=== PATIENT | male | born 1965 | race Caucasian/White ===

== ENCOUNTER → 2020-10-10 13:02 | Outpatient (CLI) | payer OTHER, SELFPAY ==
[2018-08-18 08:06] VITALS: BMI 29.9
--- NOTE | 2020-10-10 14:31 | NEURO ---
NCS and/or EMG Patient Report Ordering Doctor: Franklyn Snow DATE OF SERVICE: 10/10/20 Jam Mukherjee presents for electrodiagnostic testing of the upper limbs. Reports weakness in both hands and pain around the right elbow. Electrodiagnostic findings: Median motor nerve demonstrates normal distal latency, amplitude and conduction velocity bilaterally. There is an approximately 15% drop in ulnar motor conduction across the right elbow. Left ulnar motor responses within normal limits. Prolonged right ulnar F wave. Prolonged left ulnar F wave. Sensory responses are within normal limits. On needle EMG, all muscles tested in the upper limb showed no evidence of denervation with normal motor unit action potentials. Electrodiagnostic impression: This is an abnormal study. 1. Electrodiagnostic findings demonstrate a mild left cubital tunnel syndrome, characterized by 15% drop in ulnar nerve conduction across the elbow. 2. No electrodiagnostic evidence is noted for median neuropathy, i.e. carpal tunnel syndrome. 3. No electrodiagnostic evidence is noted for cervical radiculopathy.
== END ==
PROVIDERS: PCP Family Medicine; Referring Provider Specialist; Visit Provider Specialist
DX: M77.11 Lateral epicondylitis, right elbow (principal); G56.03 Carpal tunnel syndrome, bilateral upper limbs
CPT/HCPCS: 95886; 95913

== ENCOUNTER 2021-01-26 18:52 | Emergency (ER) | payer OTHER, SELFPAY ==
[2018-08-18 08:06] VITALS: BMI 29.9
[2021-01-26 18:53] VITALS: BP 126/75; PULSE 86; RESP 16; TEMP 36.4; O2SAT 98; BMI 30.3
--- NOTE | 2021-01-26 19:52 | EX.ED.VIS.EY ---
HPI History of Present Illness Chief Complaint: Eye Problem Narrative Narrative: 55-year-old male presenting with right eye irritation for 4 hours. He denies any direct trauma to the eye. He states that he feels like he has foreign body sensation. He is a noncontact wearer. Patient states he has been rubbing his eye since that time. Denies any visual complaints. [facility] Medical History history of heel spur Home Medications acetaminophen 500 - 1,000 mg PO DAILY 09/19/16 [History Last Taken Unknown] ibuprofen 600 mg PO 4X/DAY PRN 09/19/16 [History Last Taken Unknown] naproxen sodium [Aleve] 220 mg PO TID 09/19/16 [History Last Taken Unknown] erythromycin 1 applic RIGHT EYE Q8H 5 Days #3.5 g 01/26/21 [Rx Last Taken Unknown] Allergy/AdvReac Type Severity Reaction Status Date / Time No Known Allergies Allergy Verified 01/26/21 18:52 Social History Smoking Status: Current every day smoker tobacco type: pipe alcohol intake: never ROS ROS ED Constitutional Constitutional ED: Denies chills or fever(s) Eyes Eyes: Reports other Details: Right eye irritation with foreign body sensation ; Denies blurry vision or diplopia ENT ENT ED: Denies rhinorrhea or sore throat Cardiovascular Cardiovascular: Denies chest pain or palpitations Respiratory/Chest Respiratory/Chest: Denies cough or dyspnea Gastrointestinal Gastrointestinal: Denies abdominal pain, nausea or vomiting Genitourinary Genitourinary ED: Denies dysuria or hematuria Musculoskeletal Musculoskeletal: Denies arthralgias, back pain, myalgias or neck pain Integumentary Denies abscess or rash Neurologic Neurologic: Denies headache(s) or paresthesias EXAM Physical Exam Const Vital Signs: 01/26/21 18:53 Temperature 97.6 F L Temperature Source Temporal Pulse Rate 86 Respiratory Rate 16 Blood Pressure 126/75 H Blood Pressure Mean 92 Pulse Ox 98 Oxygen Delivery Method Room Air Positive well nourished General Appearance ED: NAD HEENT atraumatic Eyes Periorbital: periorbital findings normal Eyelid: eyelids normal Conjunctiva: conjunctiva abnormal right Cornea: cornea abnormal Positive for right and fluorescein used Pupil: PERRL and accommodation reflex normal EOM: EOM abnormal Resp normal respiratory effort and clear to auscultation bilaterally Cardio regular rate and regular rhythm Neuro oriented x3 Sensorium / Orientation: alert Skin Lesions: no lesions Rashes: no rashes MDM MDM MDM Narrative Medical decision making narrative: Patient presenting with right eye irritation. Using fluorescein I ambulate visualize corneal abrasion and scleral injection in the right eye. The abrasion appears to be punctate at the 7 o'clock position. Scleral irritation is noted adjacent to this. There are no foreign bodies. Lids and lashes are normal. No drainage from the right eye. Patient will be started on erythromycin ophthalmic in the ED. He is given instructions for this use at home. Patient also given follow-up with ophthalmology. Patient stable for discharge. Impression: 1. Right eye corneal abrasion Discharge Plan Triage Chief Complaint: Eye Problem ED Provider: Abraham Patel Dx/Rx/DC Orders Instructions: ED Corneal Abrasion Prescriptions: New erythromycin 5 mg/gram (0.5 %) ointment 1 applic RIGHT EYE Q8H 5 Days Qty: 3.5 RF: 0 No Action acetaminophen 500 MG tablet 500 - 1,000 mg PO DAILY RF: 0 naproxen sodium [Aleve] 220 MG tablet 220 mg PO TID RF: 0 ibuprofen 600 MG tablet 600 mg PO 4X/DAY PRN (Reason: Pain) RF: 0 Primary Care Provider: Johnny Black Referrals: Johnny Black MD [Primary Care Provider] - Verna Arriaga MD [STAFF PHYSICIAN] - As soon as possible Disposition Disposition: Home, Self Care Discharge Date/Time: 01/26/21 20:14
[2021-01-26] MEDS: Erythromycin Base 1 OPTH.TUBE 1 APPLIC RIGHT EYE (20:10)
[2021-01-26] MEDS: Fluorescein 1 MG STRIP 1 STRIP LEFT EYE (20:10)
[2021-01-26] MEDS: Tetracaine 0.5% Ophthalmic Bottle 1 DRP LEFT EYE (20:10)
== END 2021-01-26 20:14 | disposition home or self-care (01) ==
PROVIDERS: Emergency Provider Student in an Organized Health Care Education/Training Program; PCP Family Medicine
DX: S05.01XA Injury of conjunctiva and corneal abrasion without foreign body, right eye, initial encounter (principal); X58.XXXA Exposure to other specified factors, initial encounter; Y93.9 Activity, unspecified; Y92.9 Unspecified place or not applicable; Y99.9 Unspecified external cause status; F17.290 Nicotine dependence, other tobacco product, uncomplicated
CPT/HCPCS: 99282

== ENCOUNTER → 2023-07-30 | Outpatient (CLI) | payer OTHER, SELFPAY ==
[2023-07-30 13:31] LABS: Absolute Lymphocyte Count 2.33 X10^3/uL (0.83-4.51); Absolute Neutrophil Count 3.3 X10^3/uL (2.0-7.7); Basophil% 1.5 % (0-1); Eosinophil# 0.39 X10^3/uL; Eosinophils% 5.7 % (0-5); Hematocrit 42.8 % (40-54); Hemoglobin 14.6 g/dL (13.0-16.5); Lymphocyte # 2.33 X10^3/ul (0.83-4.51); Lymphocyte % 34.3 % (19-41); Mean Corp Hgb Conc 34.1 g/dL (32-36); Mean Corpuscular Hgb 31.1 pg (27.0-32.0); Mean Corpuscular Volume 91.3 fL (80-94); Mean Platelet Vol. 8.8 fl (6.2-12.0); Monocyte# 0.62 X10^3/uL; Monocyte% 9.1 % (0-10); NRBC Flagged by Analyzer 0 % (0-5); Neutrophil # 3.33 X10^3/uL (2.7-7.7); Neutrophil % 49.1 % (47-70); Platelet Count 351 K/mm3 (150-450); RBC Distribution Width CV 12.6 % (11.6-14.6); RBC Distribution Width SD 41.6 fl (35.1-43.9); Red Blood Count 4.69 M/mm3 (4.6-6.2); White Blood Count 6.8 K/mm3 (4.4-11.0)
[2023-07-30 14:35] LABS: Albumin, Serum 3.9 g/dL (3.2-5.0); Anion Gap 4 (5-15); BUN 17 mg/dL (7-18); BUN/Creat Ratio 16.8 RATIO (10-20); Calcium,Total 9.2 mg/dL (8.5-10.1); Chloride 106 mmol/L (98-107); Creatinine, Serum 1.01 mg/dL (0.70-1.30); EST Glomerular Filtration Rate 80 mL/min (>60); Est Glom Filt Rate - Afr Amer 97 mL/min (>60); Glucose 107 mg/dL (74-106); Potassium 4.5 mmol/L (3.5-5.1); Sodium Level 138 mmol/L (136-145)
--- OUTSIDE RECORDS SUMMARY | 2023-07-30 15:01 | XMS RPT_ITS | CCD ---
Author Name Unknown Address [address] [place] [address] Organization [facility] Care Team Providers Care Office Systems Technology Instructor Name Role Phone Wayne MAURO, Johnyn Stevens Primary Care Provider WILDA MAURO, DR CAIO Bolton Attending [facility] PHYSICIAN, NONE Primary Care Unavailable Problems Problem Classification Problem Date Documented Da te Episodic/Chronic Substance-related disorders (1 source) Smoker; Translations: [Nicotine dependence, unspecified, uncomplicated] Onset: 04-09-2009 04-09-2009 Chronic Encounters Encounter Date Encounter Type Care Provider Facility Start: 05-26-[address] CAIO ASTUDILLO MD F acility:B Start: 10-16-2020 End: 10-16-2020 Patient encounter procedure External Provider EXTERNAL-NON [facility] Start: 10-16-2020 Results Only External Provider Exter nal-Non[facility] Procedures Date Procedure Procedure Detail Performing Clinician Start: 10-16-2020 EXTERNAL PROCEDURE Exte rnal Provider Plan of Treatment Date Care Activity Detail Author Start: 02-20-2021 Influenza vaccination INFLUENZA (Sea son Ended) [facility] Start: 09-13-2019 PROSTATE CANCER SCRE ENING DISCUSSION PROSTATE CANCER SCREENING DISCUSSION [facility] Start: 2014 Screening for malign ant neoplasm of colon [facility] Start: 2014 SHINGRIX VACCINE (1 of 2) [place] GRIX VACCINE (1 of 2) [facility] Start: 2009 DIABETES SCREEN DIABETES SCREEN [facility] Start: 09-13-1999 LIPID SCREEN LIPID SCREEN [facility] Start: 09-13-1983 ONE PNEUMOVAX PRIOR TO AGE 65 ONE PNEUMOVAX PRIOR TO AGE 65 [facility] Start: 09-13-1983 Urine microalbumin profile DTAP,TDAP ,TD (1 - Tdap) [facility] Start: 1982 HEPATITIS C SCREENING HEPATITIS C SC REENING [facility] Start: 1982 [facility] Start: 1976 Adult depression scr eening assessment DEPRESSION SCREENING [facility] Payers Date Payer Category Payer Unknown [employer] PPO [id number] 2016-Present PPO [id number] Social History Date Type Detail Facility Start: 09-29-2016 Tobacco smoking stat us MDIS Current every day smoker [facility] History of tobacco use Cigarette Smoker [facility] Start: 09-29-2016 Cigarettes smoked cu rrent (pack per day) - Reported [facility] Start: 09-29-2016 Alcohol intake Current drinke r of alcohol (finding) [facility] Start: 1965 Sex Assigned At Not on file [facility] Summary Purpose Family History No Family History Records Found Advance Directives No Advanced Directives Records Found Additional Source Comments Source Comments (unrecognize d section and content) In the event this informatio n is protected by the Federal Confidentiality of Alcohol and Drug Abuse Patient Records regulations: The Federal rules restrict any use of the information to criminally investigate or prosecute any alcohol or drug abuse patient.[facility] (unrecognized sect ion and content) No Status Records Found INFORMATION SOURCE (unrecogn ized section and content) FOR RECORDS PERTAINING TO PATIENTS WHO ARE OR HAVE BEEN ENROLLED IN A CHEMICAL DEPENDENCY/SUBSTANCEABUSE PROGRAM, SOME INFORMATION MAY BE OMITTED. This clinical summary was aggregated from multiple sources. Caution should be exercised in using it in the provision of clinical care. This summary normalizes information from multiple sources, and as a consequence, information in this document may materially change the coding, format and clinical context of patient data. In addition, data may be omitted in some cases. CLINICAL DECISIONS SHOULD BE BASED ON THE PRIMARY CLINICAL RECORDS. [facility]. provides no warranty or guarantee of the accuracy or completeness of information in this document.
== END | disposition home or self-care (01) ==
PROVIDERS: PCP Family Medicine; Referring Provider Specialist; Visit Provider Specialist
DX: Z01.818 Encounter for other preprocedural examination (principal); E11.9 Type 2 diabetes mellitus without complications; M17.11 Unilateral primary osteoarthritis, right knee; Z01.810 Encounter for preprocedural cardiovascular examination
CPT/HCPCS: 36415; 80048; 82040; 85025; 93005

== ENCOUNTER → 2023-09-04 | Outpatient (CLI) | payer OTHER, SELFPAY ==
--- NOTE | 2023-09-04 12:45 | VDLE_ITS ---
Reason For Study: RLE EDEMA, S/P RT TKR RIGHT LEFT GSV is normal. CFV is compressible, spontaneous, phasic, CFV is compressible, spontaneous, phasic, competent, and demonstrates normal competent and demonstrates normal augmentation. augmentation. FV is compressible, spontaneous, phasic, competent and demonstrates normal augmentation. POP V is compressible, spontaneous, phasic, competent and demonstrates normal augmentation. T/P Trunk is compressible. PTV is compressible. RT PerV is compressible. Procedure This is a venous duplex using B-mode, color flow and spectral Doppler. Exam performed in department. A preliminary report was called and/or faxed to Haile Troy PA-C @ [phone] @ 1:10 pm. VL/Venous Duplex US, Unilateral Interpretation Summary Deep veins of the right lower extremity are patent and compressible segmentally . There is no evidence of right lower extremity deep vein thrombosis. Valvular competence janell ears intact within the proximal deep venous system on the right . The right great saphenous vein a ppears patent and compressible segmentally. The left common femoral vein is patent and compressib le . Ordering Physician: Haile Troy Referring Physician: Johnny Black Performed By: Armida Hatfield, ARUN, RVT
--- OUTSIDE RECORDS SUMMARY | 2023-09-04 17:38 | XMS RPT_ITS | CCD ---
Author Name Unknown Address Formerly [id number] [place] [address] Organization [facility] Care Team Providers Care Office Manager Receptionist Name Role Phone Wayne MAURO, Kesha Stevens Primary Care Provider [phone] WILDA MAURO, DR CAIO Bolton Attending Xiang grimaldo PHYSICIAN, NONE Primary Care Unavailable PHYSICIAN, NONE Primary Care Physician Kesha Jeffrey MD Primary Care Provider [phone] KESHA CARLISLE MARK Primary Care Unavailable Allergies Allergy Classification Reported Allergen(s) Allergy Type Date of Onset Reaction(s) Facility (1 source) Bee Sting Allergy to substance 08-03-2023 [facility] Medications Completed/Discontinued Medications Medication Drug Class(es) Dates Sig (Normalized) Sig (Original) meloxicam 7.5 mg oral tablet (1 source) Nonsteroidal Anti-inflammatory Drug Start: 08-03-2023 take 1 tablet by mouth twice daily at mealtime meloxicam (MOBIC) 7.5 mg tablet Take 1 tablet by mouth two times a day. With food. 0 08/03/2023 Active Problems Problem Classification Problem Date Documented Da te Episodic/Chronic Substance-related disorders (3 sources) Smoker; Translations: [Nicotine dependence, unspecified, uncomplicated] Onset: 04-09-2009 04-09-2009 Chronic Results Test Name Value Interpretation Reference Range Facil ity Vital Signs Date Time Vital Sign Value Performing Clinician Faci lity 08-03-2023 14:18-0500 Body height 185.4 cm Kesha Carlisle MD Work Phone: [facility] 08-03-2023 14:18-0500 Body weight 107.46 kg Kesha Carlisle MD Work Phone: [facility] 08-03-2023 14:18-0500 Diastolic blood pressure 80 mm[Hg] Kesha Carlisle MD Work Phone: [facility] 08-03-2023 14:18-0500 Heart rate 78 /min Kesha Carlisle MD Work Phone: [facility] 08-03-2023 14:18-0500 Respiratory rate 16 /min Kesha Carlisle MD Work Phone: [facility] 08-03-2023 14:18-0500 Systolic blood pressure 120 mm[Hg] Kesha Carlisle MD Work Phone: [facility] Encounters Encounter Date Encounter Type Care Provider Facility Start: 08-03-2023 End: 08-03-2023 ambulatory KESHA CARLISLE Facility:[facility] Start: 08-03-2023 End: 08-03-2023 Patient encounter procedure Kesha Carlisle MD Work Phone: [facility] Procedures Date Procedure Procedure Detail Performing Clinician Start: 10-16-2020 EXTERNAL PROCEDURE Exte rnal Provider Plan of Treatment Date Care Activity Detail Author Start: 08-03-2024 Covid-19 Vaccine ( season) Covid-19 Vaccine ( season) [facility] Immunizations Immunization Date Immunization Notes Care Provider Mj moura 09-01-2016 influenza virus vaccine, unspecified formulation Kesha Carlisle MD Work Phone: [facility] Payers Date Payer Category Payer Unknown MMO [employer] PPO [id number] 2022-Present [phone] [address] [place] [address] PPO [id number] 2016 Unknown [employer] PPO [id number] 2016-Present PPO [id number] 2016 Unknown [id number] Social History Date Type Detail Facility Start: 09-29-2016 End: 08-03-2023 Tobacco smoking status NHIS Current every day smoker [facility] History of tobacco use Cigarette Smoker [facility] Start: 09-29-2016 End: 08-03-2023 Cigarettes smoked current (pack per day) - Reported [facility] Work Phone: Start: 09-29-2016 End: 08-03-2023 Alcohol intake Current drinker of alcohol (finding) [facility] Start: 1965 Sex Assigned At Not on file [facility] Start: 08-03-2023 Tobacco use panel [facility] Work Phone: Adult Depression Screening Assessment 0 [facility] Work Phone: Progress note 08-03-2023 Note Date & Type Note Facility 08-03-2023 Note HNO ID: [id number] Author: KESHA CARLISLE MD Service: ? Author Type: Physician Type: Progress Notes Filed: 08/03/2023 14:41 Note Text: Chief Complaint Patient presents with: Pre-Op Exam: HPI Thee Mukherjee is a 57 year old male who presents here today for a pre-op appt. Pt here today for a pre-op appt. Has not been seen since 2007. He is scheduled to have Right TKR done 08/21/[address] Snow with [facility]. He has had his PAT done already. All pre admission testing was normal as far as he is aware, no one has called him to tell him other connors. Smokes 1.5 ppd, not interested in quitting. He is trying to cut back to half ppd. Denies drinking much alcohol. Does not take any regular medications other than what the Ortho provider put him on: Tylenol 1,000 mg twice daily and Mobic 7.5 mg 1 pill twice daily. Denies any problems in the past with surgeries or anesthesia. No chest pains, dizziness, or SOB. He is not limited in activity by his breathing. Still working nurse anesthetist, has a very busy active job. Denies ever injuring the right knee before. He has been getting cortisone injections regularly for the last 2 years but those are not working well to control the arthritis pain. Left knee is not as bad as the right knee. Declined all vaccines, colon cancer screening, HIV and Hep C screening. HM: Depression screening; denies feeling depressed or hopeless. Depression screening tool completed and reviewed. Based on score and interview, patient is not at risk for depression. Screening tool discussed with patient, and I recommended no further intervention at this time Past medical history, appointments, medications, allergies reviewed. Previous Medical History No past medical history on file. Previous Surgical History PAST SURGICAL HISTORY Procedure Laterality Date PAST SURGICAL HISTORY OF Right 09/26/2016 plantar fasciitis and infracalcaneal spur Family History FAMILY HISTORY Problem Relation Age of Onset Cancer Father Liver, lung Patient Allergies ALLERGIES Allergen Reactions Bee Sting Swelling Current Medications No current outpatient medications on file prior to visit. No current facility-administered medications on file prior to visit. Social History Social History Tobacco Use Smoking status: Every Day Packs/day: 2.00 Years: 20.00 Additional pack years: 0.00 Total pack years: 40.00 Types: Cigarettes Substance Use Topics Alcohol use: Yes Drug use: No EXAM: BP 120/80 Pulse 78 Resp 16 Ht 185.4 cm (6' 1 ) Wt 107.5 kg (236 lb 14.4 oz) BMI 31.26 kg/m? General Appearance: Well appearing, alert, in no acute distress, well-hydrated, well nourished. and Overweight. Neck: Supple, no adenopathy; thyroid symmetric, normal size. Lungs: Lungs clear to auscultation. No wheezing, rhonchi, rales.. Heart: RRR without murmur, gallop, or rubs. No ectopy. Abdomen: Normal abdominal exam, Abdomen soft, non-tender. Bowel sounds normal. No masses, organomegaly. Health Maintenance List Hepatitis B Vaccine(1 of 3 - 3-dose series) Never done Covid-19 Vaccine(1) Never done Hepatitis C Screening Never done HIV Screening Never done DTaP,Tdap,Td Vaccine(1 - Tdap) Never done Lipid Screening Never done Diabetes Screening Never done Colorectal Cancer Screening Never done Shingrix Vaccine(1 of 2) Never done Prostate Cancer Screening Discussion Never done Influenza Vaccine(1) due on 02/20/2023 Depression Assessment Never done Data reviewed BMP/CBC on 07/30/23 normal ASSESSMENT/PLAN: 1. Pre-op exam - ICD9: V72.84, ICD10: Z01.818 Cleared for knee surgery Encouraged smoking cessation Copy of today's visit faxed to [facility] Follow up as needed. I agree with the Chief Complaint, ROS, and Past Histories independently gathered by the clinical direct support staff and the remaining scribed note accurately describes my personal service to the patient. I spent a total of 30 minutes on the date of the service which included preparing to see the patient, [id number] patient care, completing clinical documentation, obtaining and/or reviewing separately obtained history, performing a medically appropriate examination, counseling and educating the patient/family/caregiver, and independently interpreting results (not separately reported). Kesha Carlisle MD The documentation for this note was completed by Mary Goncalves Ma acting as scribe for Kesha Carlisle MD. August 03, 2023 2:28 PM. Mary Goncalves Ma [facility] History of Present illness Narrative 08-03-2023 Kesha Carlisle MD - 08/03/2023 2:40 PM EST Note Date & Type Note Facility 08-03-2023 History of Presen t illness Narrative Chief Complaint Patient presents with: Pre-Op Exam: HPI Thee Mukherjee is a 57 year old male who presents here today for a pre-op appt. Pt here today for a pre-op appt. Has not been seen since 2007. He is scheduled to have Right TKR done 08/21/[address] Snow with [facility]. He has had his PAT done already. All pre admission testing was normal as far as he is aware, no one has called him to tell him other connors. Smokes 1.5 ppd, not interested in quitting. He is trying to cut back to half ppd. Denies drinking much alcohol. Does not take any regular medications other than what the Ortho provider put him on: Tylenol 1,000 mg twice daily and Mobic 7.5 mg 1 pill twice daily. Denies any problems in the past with surgeries or anesthesia. No chest pains, dizziness, or SOB. He is not limited in activity by his breathing. Still working nurse anesthetist, has a very busy active job. Denies ever injuring the right knee before. He has been getting cortisone injections regularly for the last 2 years but those are not working well to control the arthritis pain. Left knee is not as bad as the right knee. Declined all vaccines, colon cancer screening, HIV and Hep C screening. HM: Depression screening; denies feeling depressed or hopeless. Depression screening tool completed and reviewed. Based on score and interview, patient is not at risk for depression. Screening tool discussed with patient, and I recommended no further intervention at this time Past medical history, appointments, medications, allergies reviewed. Previous Medical History No past medical history on file. Previous Surgical History PAST SURGICAL HISTORY Procedure Laterality Date PAST SURGICAL HISTORY OF Right 09/26/2016 plantar fasciitis and infracalcaneal spur Family History FAMILY HISTORY Problem Relation Age of Onset Cancer Father Liver, lung Patient Allergies ALLERGIES Allergen Reactions Bee Sting Swelling Current Medications No current outpatient medications on file prior to visit. No current facility-administered medications on file prior to visit. Social History Social History Tobacco Use Smoking status: Every Day Packs/day: 2.00 Years: 20.00 Additional pack years: 0.00 Total pack years: 40.00 Types: Cigarettes Substance Use Topics Alcohol use: Yes Drug use: No EXAM: BP 120/80 Pulse 78 Resp 16 Ht 185.4 cm (6' 1 ) Wt 107.5 kg (236 lb 14.4 oz) BMI 31.26 kg/m General Appearance: Well appearing, alert, in no acute distress, well-hydrated, well nourished. and Overweight. Neck: Supple, no adenopathy; thyroid symmetric, normal size. Lungs: Lungs clear to auscultation. No wheezing, rhonchi, rales.. Heart: RRR without murmur, gallop, or rubs. No ectopy. Abdomen: Normal abdominal exam, Abdomen soft, non-tender. Bowel sounds normal. No masses, organomegaly. Health Maintenance List Hepatitis B Vaccine(1 of 3 - 3-dose series) Never done Covid-19 Vaccine(1) Never done Hepatitis C Screening Never done HIV Screening Never done DTaP,Tdap,Td Vaccine(1 - Tdap) Never done Lipid Screening Never done Diabetes Screening Never done Colorectal Cancer Screening Never done Shingrix Vaccine(1 of 2) Never done Prostate Cancer Screening Discussion Never done Influenza Vaccine(1) due on 02/20/2023 Depression Assessment Never done Data reviewed BMP/CBC on 07/30/23 normal ASSESSMENT/PLAN: 1. Pre-op exam - ICD9: V72.84, ICD10: Z01.818 Cleared for knee surgery Encouraged smoking cessation Copy of today's visit faxed to [facility] Follow up as needed. I agree with the Chief Complaint, ROS, and Past Histories independently gathered by the clinical direct support staff and the remaining scribed note accurately describes my personal service to the patient. I spent a total of 30 minutes on the date of the service which included preparing to see the patient, [id number] patient care, completing clinical documentation, obtaining and/or reviewing separately obtained history, performing a medically appropriate examination, counseling and educating the patient/family/caregiver, and independently interpreting results (not separately reported). Kesha Carlisle MD The documentation for this note was completed by Mary Goncalves Ma acting as scribe for Kesha Carlisle MD. August 03, 2023 2:28 PM. Mary Goncalves Ma documented in this encounter [facility] Clinical Note 07-31-2023 Note Date & Type Note Facility 07-31-2023 Note ORIGINAL EXAMINATION: CT OF THE RIGHT KNEE WITHOUT CONTRAST 07/31/2023 8:52 am TECHNIQUE: CT of the right knee was performed without the administration of intravenous contrast. Multiplanar reformatted images are provided for review. Automated exposure control, iterative reconstruction, and/or weight based adjustment of the mA/kV was utilized to reduce the radiation dose to as low as reasonably achievable. COMPARISON: None. HISTORY ORDERING SYSTEM PROVIDED HISTORY: Reason for Exam: UNILATERAL PRIMARY OSTEOARTHRITIS. FINDINGS: No acute fracture or dislocation. Mild osseous demineralization. No visible aggressive osseous lesions. There is severe medial femorotibial compartment joint space narrowing with subchondral sclerosis and marginal osteophytes. There is mild lateral femorotibial compartment joint space narrowing with small marginal osteophytes. There is slight patellofemoral compartment joint space narrowing with marginal osteophytes. There is a small volume joint effusion. No significant volume of fluid is evident of a popliteal cyst. An intracapsular body of the infrapatellar recess, eccentric laterally measures up to 0.7 cm AP dimension. Osseous fusion of the proximal tibiofibular articulation. Tendons and ligaments are suboptimally evaluated on this examination. Minimal insertional quadriceps enthesopathy. No severe muscle atrophy. Prepatellar and proximal tibial subcutaneous edema. Provided images of the hip and hemipelvis exhibit no acute osseous abnormalities or aggressive osseous lesions. At least mild right hip osteoarthrosis. A Cam deformity of the femoral head-neck junction is noted. Partially visible mild arthrosis of the pubic symphysis. The included intrapelvic contents exhibit no acute abnormalities. Provided images of the ankle exhibit no acute osseous abnormalities or aggressive osseous lesions. Vacuum phenomena is noted at the tibiotalar joint. IMPRESSION: 1. No acute osseous abnormality or aggressive osseous lesion. Tricompartmental osteoarthrosis, most advanced of the medial femorotibial compartment. Small volume effusion. 2. Additional findings as above. Interpreted by: Lex Banks DO Preliminary Report By: Lex Banks DO Electronically signed By Lex Banks DO Dictated Date: 07/31/2023 8:58:37 AM Prelim Date: 07/31/2023 9:05:30 AM Sign Date: 07/31/2023 9:05:30 AM Ordering Provider: CAIO SNOW [facility] Evaluation + Plan note Note Date & Type Note Facility Evaluation + Plan note No data available for this section [facility] Evaluation note Note Date & Type Note Facility documented in this encounter [facility] Discharge instructions Note Date & Type Note Facility Hospital Discharge instructions No data available for this section [facility] Progress note Note Date & Type Note Facility Progress note No data available for this section [facility] Summary Purpose Family History No Family History Records Found No data available for this section No Family History Records Found Advance Directives No Advanced Directives Records FoundNo Advanced Directives Records Found Additional Source Comments Source Comments (unrecognize d section and content) In the event this informatio n is protected by the Federal Confidentiality of Alcohol and Drug Abuse Patient Records regulations: The Federal rules restrict any use of the information to criminally investigate or prosecute any alcohol or drug abuse patient[facility] the event this information is protected by the Federal Confidentiality of Alcohol and Drug Abuse Patient Records regulations: The Federal rules restrict any use of the information to criminally investigate or prosecute any alcohol or drug abuse patient.[facility] (unrecognized sect ion and content) No Status Records FoundNo Status Records Found INFORMATION SOURCE (unrecogn ized section and content) DATE CREATED AUTHOR AUTHOR'S NADER ATION 08/04/2023 [facility] Reason for Visit (unrecogniz ed section and content) Care Teams (unrecognized sec tion and content) FOR RECORDS PERTAINING TO PATIENTS [...] BE BASED ON THE PRIMARY CLINICAL RECORDS. [employer] [facility] provides no warranty or guarantee of the accuracy or completeness of information in this document.
== END | disposition home or self-care (01) ==
LOC: CVS 12:41
PROVIDERS: PCP Family Medicine; Referring Provider Physician Assistant Surgical; Visit Provider Physician Assistant Surgical
DX: R22.41 Localized swelling, mass and lump, right lower limb (principal); Z96.651 Presence of right artificial knee joint
CPT/HCPCS: 93971